=== PATIENT | female | born 1990 | race Caucasian/White ===

== ENCOUNTER 2024-12-12 06:13 | Emergency (ER) | payer SELFPAY ==
[~2024-12-12] VITALS: Ht 170.2 cm; Wt 68.0 kg
[2024-12-12 06:20] VITALS: TEMP 98.6
[2024-12-12 07:11] LABS: BASOPHILS % 0.4 % (0.0-1.0); EOSINOPHILS % 1.3 % (0.0-6.0); LYMPHOCYTES % 11.6 % (18.0-39.1); MONOCYTES % 6.4 % (4.4-11.3); NEUTROPHILS % 79.7 % (38.7-80.0); RED CELL DISTRIBUTION WIDTH 12.4 % (11.7-14.4)
[2024-12-12] MEDS: SODIUM CHLORIDE 0.9% 1000ML 1,000 ML IV STA (07:19)
[2024-12-12 07:25] LABS: EST GLOMERULAR FILTRATION RATE 118 ML/MIN (>=60)
[2024-12-12] MEDS: ONDANSETRON HCL INJ 2MG/ML 2ML 2 MG/ML VIAL IV STA (07:25)
[2024-12-12] MEDS ORDERED: IOPAMIDOL 370 MG/ML 100 ML INFUS..BTL INJ ONE (07:38)
[2024-12-12] MEDS: KETOROLAC TROMETHAMINE 30 MG/ML VIAL IV STA (07:48)
[2024-12-12 07:56] LABS: LEUKOCYTE ESTERASE ,URINE LARGE (NEGATIVE); PROTEIN,URINE DIPSTICK NEGATIVE (NEGATIVE); URINE UROBILINOGEN 0.2 mg/dL (0.2 - 1)
[2024-12-12 08:10] LABS: EPITHELIAL CELLS,URINE FEW /LPF; WBC,URINE (MAN) >50 /HPF (0-5)
[2024-12-12] MEDS: CEFTRIAXONE 2 GM in SODIUM CHLORIDE 0.9% 100 ML IV ONE (09:30)
[2024-12-12] MEDS ORDERED: CEFDINIR300 MG PO (10:00)
[2024-12-12 10:17] VITALS: PULSE 71; RESP 18
[2024-12-12 10:20] VITALS: BP 115/77; PULSE 71; RESP 18; O2SAT 99
== END 2024-12-12 10:43 | disposition home or self-care (01) ==
LOC: ER 06:32
DX: R10.31 Right lower quadrant pain (principal); N30.90 Cystitis, unspecified without hematuria; R11.0 Nausea; M54.50 Low back pain, unspecified
CPT/HCPCS: 36415; 74177; 80053; 81001; 83690; 83735; 84702; 85025; 87086; 87186; 99284; J0696; J1885; J2405; J7030; J7050; Q9967